=== PATIENT | female | born 1985 | race Caucasian/White ===

== ENCOUNTER 2016-11-27 14:21 | Inpatient (IN) | payer BC ==
--- NOTE | 2016-11-27 15:31 | ED ---
General Adult HPI - General Chief complaint: Psychiatric Symptoms Stated complaint: Mental Health Time Seen by Provider: 11/27/16 14:59 Source: patient, RN notes reviewed Mode of arrival: ambulatory Limitations: no limitations - History of Present Illness Initial comments: Patient a 31-year-old female who presents emergency room today with chief complaint of increased depression. Patient states that she has been feeling more down the past week. Patient's that bedside providing history stating that he believes it's been triggered after children at home developed lice. States he went to the treatment and one of the children got back. Patient states that she has been feeling more down the past week. States that she has had thoughts of hurting herself. Patient states that she has no intentions hernia rales. Does not that she saw a counselor once in the past. States she not currently seeing anyone. Currently not on any medications. Patient denies any other complaints associated symptoms. Patient denies any recent fever, chills, shortness of breath, chest pain, back pain, abdominal pain , nausea or vomiting, numbness or tingling, dysuria or hematuria, constipation or diarrhea, headaches or visual changes, or any other complaints. - Related Data Home Medications Medication Instructions Recorded Confirmed Cholecalciferol [Vitamin D3] 1,000 unit PO DAILY 07/26/15 11/27/16 Biotin 5 mg PO DAILY 11/27/16 11/27/16 Citalopram Hydrobromide [CeleXA] 20 mg PO DAILY 11/27/16 11/27/16 LORazepam [Ativan] 1 mg PO Q12H 11/27/16 11/27/16 Multivitamins, Thera [Multivitamin] 1 tab PO DAILY 11/27/16 11/27/16 Allergies Allergy/AdvReac Type Severity Reaction Status Date / Time Penicillins Allergy Rash/Hives Verified 11/27/16 15:17 Sulfa (Sulfonamide Allergy Rash/Hives Verified 11/27/16 15:17 Antibiotics) Review of Systems ROS Statement: Those systems with pertinent positive or pertinent negative responses have been documented in the HPI. ROS Other: All systems not noted in ROS Statement are negative. Past Medical History Additional Past Medical History / Comment(s): depression anxieyt History of Any Multi-Drug Resistant Organisms: None Reported Additional Past Surgical History / Comment(s): uterine ablation Past Psychological History: Anxiety, Depression, PTSD Smoking Status: Never smoker Past Alcohol Use History: None Reported Past Drug Use History: None Reported General Exam - General Exam Comments Initial Comments: General: The patient is awake and alert, in no distress, and does not appear acutely ill. Eye: Pupils are equal, round and reactive to light, extra-ocular movements are intact. No nystagmus. There is normal conjunctiva bilaterally. No signs of icterus. Ears, nose, mouth and throat: There are moist mucous membranes and no oral lesions. Neck: The neck is supple, there is no tenderness or JVD. Cardiovascular: There is a regular rate and rhythm. No murmur, rub or gallop is appreciated. Respiratory: Lungs are clear to auscultation, respirations are non-labored, breath sounds are equal. No wheezes, stridor, rales, or rhonchi. Gastrointestinal: Soft, non-distended, non-tender abdomen without masses or organomegaly noted. There is no rebound or guarding present. No CVA tenderness. Bowel sounds are unremarkable. Musculoskeletal: Normal ROM, no tenderness. Strength 5/5. Sensation intact. Pulses equal bilaterally 2+. Neurological: A&O x 3. CN II-XII intact, There are no obvious motor or sensory deficits. Coordination appears grossly intact. Speech is normal. Skin: Skin is warm and dry and no rashes or lesions are noted. Psychiatric: Cooperative, appropriate mood & affect, normal judgment. Limitations: no limitations Course Vital Signs 11/27/16 11/27/16 11/27/16 14:32 15:32 17:19 Temperature 98.5 F 98.0 F 98.2 F Pulse Rate 118 H 95 83 Respiratory 16 24 20 Rate Blood Pressure 137/89 118/76 121/72 O2 Sat by Pulse 97 96 94 L Oximetry Medical Decision Making - Medical Decision Making Patient has been examined here the emergency room by [facility]. They recommend admission to the hospital. Patient will be admitted and willing to sign herself in. - Lab Data Lab Results 11/27/16 Range/Units 15:41 Urine Opiates Screen Not Detected (NotDetected) Ur Oxycodone Screen Not Detected (NotDetected) Urine Methadone Screen Not Detected (NotDetected) Ur Propoxyphene Screen Not Detected (NotDetected) Ur Barbiturates Screen Not Detected (NotDetected) U Tricyclic Antidepress Not Detected (NotDetected) Ur Phencyclidine Scrn Not Detected (NotDetected) Ur Amphetamines Screen Not Detected (NotDetected) U Methamphetamines Scrn Not Detected (NotDetected) U Benzodiazepines Scrn Detected H (NotDetected) Urine Cocaine Screen Not Detected (NotDetected) U Marijuana (THC) Screen Not Detected (NotDetected) Disposition Clinical Impression: Depression Disposition: TRANSFER TO PSYCH HOSP/UNIT Time of Disposition: 18:19
[2016-11-27] MEDS ORDERED: LORazepam 1 MG TAB PO STA (18:17)
[2016-11-27] MEDS ORDERED: ACETAMINOPHEN TAB 325 MG TAB PO PRN (19:28)
[2016-11-27] MEDS ORDERED: MAGNESIUM HYDROXIDE 2,400 MG/10 ML CUP PO PRN (19:28)
[2016-11-27] MEDS ORDERED: MAG HYDROX/AL HYDROX/SIMETH 30 ML CUP PO PRN (19:28)
[2016-11-27] MEDS ORDERED: LORazepam 2 MG/ML SYRINGE IM PRN (19:30)
[2016-11-27 21:38] VITALS: BMI 36.5
[2016-11-28] MEDS: LORazepam 1 MG TAB PO PRN (05:46)
[2016-11-28 09:58] LABS: Basophils % (A) 1 %; CH 29.7; CHCM 33.6; Eosinophils % (A) 0 %; HCT 45.7 % (34.0-46.0); HDW 2.35; Luc # (Auto) 0.12; Luc % (Auto) 2; Lymphocytes # (A) 1.5 k/uL (1.0-4.8); Lymphocytes % (A) 22 %; MCH 29.1 pg (25.0-35.0); MCHC 32.8 g/dL (31.0-37.0); MCV 88.7 fL (80.0-100.0); Mean Platelet Volume 6.1; Monocytes # (A) 0.3 k/uL (0-1.0); Monocytes % (A) 4 %; Neutrophils % (A) 72 %; RBC 5.16 m/uL (3.80-5.40); RDW 13.1 % (11.5-15.5); WBC (Perox) 7.39
--- NOTE | 2016-11-28 10:09 | P.HP ---
Psychiatric H&P - . History & Physical: Allergies Allergy/AdvReac Type Severity Reaction Status Date / Time Penicillins Allergy Rash/Hives Verified 11/27/16 21:19 Sulfa (Sulfonamide Allergy Rash/Hives Verified 11/27/16 21:19 Antibiotics) Vital Signs Temp 97.9 F 11/28/16 05:57 Pulse 88 11/28/16 05:57 Resp 16 11/28/16 05:57 BP 116/75 11/28/16 05:57 Pulse Ox 94 L 11/27/16 17:19 Intake & Output 11/27/16 11/28/16 11/28/16 18:59 06:59 18:59 Weight 102.7 kg Laboratory Last Values Urine Opiates Screen Not Detected (NotDetected) 11/27/16 15:41 Ur Oxycodone Screen Not Detected (NotDetected) 11/27/16 15:41 Urine Methadone Screen Not Detected (NotDetected) 11/27/16 15:41 Ur Propoxyphene Screen Not Detected (NotDetected) 11/27/16 15:41 Ur Barbiturates Screen Not Detected (NotDetected) 11/27/16 15:41 U Tricyclic Antidepress Not Detected (NotDetected) 11/27/16 15:41 Ur Phencyclidine Scrn Not Detected (NotDetected) 11/27/16 15:41 Ur Amphetamines Screen Not Detected (NotDetected) 11/27/16 15:41 U Methamphetamines Scrn Not Detected (NotDetected) 11/27/16 15:41 U Benzodiazepines Scrn Detected (NotDetected) H 11/27/16 15:41 Urine Cocaine Screen Not Detected (NotDetected) 11/27/16 15:41 U Marijuana (THC) Screen Not Detected (NotDetected) 11/27/16 15:41 11/28/16 09:57 IDENTIFYING DATA: This patient is a 31-year-old female who was admitted to the mental health unit through the emergency room with acutely exacerbated anxiety feelings of hopelessness and presumed suicidal thoughts. HPI: The patient is known to me from the outpatient clinic. She carries a diagnosis of major depressive disorder and anxiety symptoms. She reports her mood is markedly depressed she is tearful on a regular basis and she feels that she can't function. Sleep is impaired energy is subsequently impaired. Appetite is decreased. She has hopeless thoughts and states "my family would be better without me". She's been experiencing "nonstop panic attacks" over the last several weeks. She has been known to struggle with those and she feels that they are triggered more acutely by her daughters coming home with head lice. The patient states that she treated them and all other clothing and one week later it reoccurred. She describes constant panic attacks that consist of shortness of breath, increased heart rate, diaphoresis, nausea and sometimes vomiting. These are happening spontaneously as well as triggered and she is concerned as to when the next panic attack will occur. She is reporting no homicidal ideation she specifically states she has no thoughts of harming her children. There is no report of auditory or visual hallucinations she is endorsing no specific delusions. She has no history of hypomanic or manic episodes. They have no firearms in her home. PAST PSYCHIATRIC HISTORY: This is the patient's first inpatient psychiatric admission, no history of suicide attempts or any self-injurious behavior. She did work with me briefly in the outpatient clinic and with our last meeting several months ago she stated she did not want to be on any psychotropic medications. She reports that she was successful without medications up until about 2 months ago. She has been on Zoloft in the past which caused weight gain , Wellbutrin which adversely affected her mood, Celexa which made her feel "numb ", Lexapro she felt she could not function, Trintellix she felt was ineffective. Her primary care physician recently put her back on Celexa then changed to Effexor XR which she has not yet taken. She has not been on Cymbalta or Prozac. She has been utilizing Ativan here on the mental health unit and that does provide some relief. She has previously tried Xanax. She is not currently working with an individual therapist but has in the past. PMH: She reported a previous history of Mnire's, and previously diagnosed with unspecified pelvic pain ALLERGIES: Penicillin, sulfa MEDICATIONS: As above CHEMICAL DEPENDENCY HISTORY: She reports rare use of alcohol at most 1-2 drinks per year, no use of marijuana, she has never been placed in residential treatment for chemical dependency reasons. FAMILY PSYCHIATRIC HISTORY: Her aunt is known to have depression as well as a cousin they both struggle with anxiety, no suicides in the family FAMILY CHEMICAL DEPENDENCY HISTORY: None Reported SOCIAL HISTORY: The patient is a 31-year-old female she's been for approximately 9 years. She states her marriage is "I thought getting better". She has 3 children ages 47 and 9 one boy and 2 girls. She is not employed outside of the home. She has a high school education and additionally earned a cosmetology certificate. No history of service she has 1 sister. Overall she finds her family supportive. Legal history none. Abuse history she states growing up she was bullied by cousins. MENTAL STATUS EXAM: The patient is an overweight female appearing her stated age. She presents with a disheveled appearance hygiene is adequate. She is dressed in her own clothing. Eye contact is intermittent speech is fluent and spontaneous nonpressured. She endorses a significantly depressed and anxious mood she is tearful throughout the session. She reports recent hopelessness thinking and thoughts of not being around. She endorses no homicidal ideation and specifically denies having any thoughts of harming her children. She endorses no auditory or visual hallucinations she is endorsing no specific delusions. She seems to be experiencing more obsessive thinking related to her children henry had lice. She demonstrates no verbal or physical aggressiveness. She is alert and oriented to person place and date. She is able to spell world backwards she is able to recall 3 words after delay of 3 minutes. Insight and judgment limited at this time. STRENGTHS/WEAKNESSES: Strengths: Housing, support from family, presenting for help weaknesses: Ongoing anxiety and mood symptoms causing psychosocial dysfunction INTELLECTUAL FUNCTIONING: Average IMPRESSIONS: [] 1. Major depressive disorder recurrent severe without psychosis, generalized anxiety disorder, panic disorder without agoraphobia 2. History of Mnire's, unspecified pelvic pain 3. Psychosocial dysfunction due to mood and anxiety symptoms PLAN: The patient has been admitted to the mental health unit voluntarily. We reviewed her presenting symptoms and medication options. We discussed the need to institute an antidepressant medication and we will temporarily use a benzodiazepine as a bridge. The patient chronically has significant concern about medication side effects and she is often focused on somatic issues. We decided to initiate Effexor XR 75 mg daily and we will continue the Ativan 1 mg up to 3 times daily as needed. We will monitor her for safety and encourage her participation in the milieu. Social work will meet with the patient for routine psychosocial assessment and begin discharge planning. She will undergo a routine physical exam by her primary care physician. Suggestions for cognitive reframing were offered and those will be reinforced during the hospitalization. We will involve her family in treatment and discharge planning as she will allow.
[2016-11-28 10:30] LABS: ALT 34 U/L (9-52); AST 20 U/L (14-36); Alkaline Phosphatase 89 U/L (38-126); Anion Gap 14 mmol/L; Blood Urea Nitrogen 11 mg/dL (7-17); Calcium 9.9 mg/dL (8.4-10.2); Carbon Dioxide 25 mmol/L (22-30); Chloride 104 mmol/L (98-107); Glucose 116 mg/dL (74-99); Non-African American GFR(MDRD) >60 (>60 ml/min/1.73 sqM); Potassium 3.9 mmol/L (3.5-5.1); Sodium 143 mmol/L (137-145); Total Bilirubin 0.6 mg/dL (0.2-1.3); Total Protein 7.8 g/dL (6.3-8.2)
[2016-11-28] MEDS: VENLAFAXINE HCL ER 75 MG CAP PO SCH (10:35)
--- NOTE | 2016-11-28 21:01 | CONS ---
DATE OF CONSULTATION: REASON FOR CONSULTATION: Medical management. HISTORY OF PRESENT ILLNESS: Ms. Vee is a 31-year-old female with a known history of depression, anxiety and history of Meniere's disease and thyroid nodule, came to the hospital with increasing depression. Apparently, the patient had panic attack last and she has been feeling more depressed over the past one week and she also had thoughts of hurting herself and denied any specific plan. Patient did not have any previous psychiatric inpatient admissions. Patient lives with her at home with 3 kids. The patient was on Celexa and Ativan. Currently not taking medications. Otherwise, patient does have a history of thyroid nodule and follow up with endocrinology clinic. Patient says that she was diagnosed with Meniere's disease and was on diuretics, which has been discontinued by her counter pocket sewer. Otherwise the patient denied any complaints of chest pain or short of breath. No fever. No chills. No nausea or vomiting, abdominal pain. The patient seems depressed. Denied any suicidal ideation at this time. Denied any headache, dizziness or lightheadedness and no visual or auditory hallucinations. Denied any other complaints. Complete review of systems negative except as above. PAST MEDICAL HISTORY: Anxiety, depression, Meniere's disease, thyroid nodule, PMS/PMDD. PAST SURGICAL HISTORY: D&C and ear tubes as a child, uterine ablation. Psychosocially: Anxiety, depression, PTSD. SOCIAL HISTORY: Patient never a smoker. Denied any alcohol. Denied any drugs or IVDU. FAMILY HISTORY: Denied any history of hypertension, diabetes mellitus or premature heart disease in the family. Home medication: 1. Multivitamins. 2. Vitamin D3. 3. Biotin. 4. Celexa. 5. Ativan. ALLERGIES: PENICILLIN AND SULFA. PHYSICAL EXAMINATION: A 31-year-old female, lying in the bed. Awake, alert, oriented, x3 appears to be in no apparent distress. VITALS: Blood pressure is 132/75, pulse 81, respiratory rate 16, temperature afebrile, pulse ox is ( ) on room air. HEENT: Atraumatic, normocephalic. Neck is supple. No JVD. CVS: S1, S2 heard. No murmur, no gallop and no rub. LUNGS: Bilateral air entry is present. No wheezing. No crackles. Nonlabored breathing. ABDOMEN: Soft, nontender. Bowel sounds present. CENTRAL NERVOUS SYSTEM: Awake, alert and oriented x3. No focal deficits. EXTREMITIES: No edema. Pulses palpable bilaterally. No clubbing or cyanosis. PSYCHIATRIC: Cooperative. Seems depressed. Denied any hallucination or suicidal ideation. LABORATORY DATA: WBC 7.0, hemoglobin 14.0, platelets 254. Sodium 143, potassium 3.9, chloride 104, bicarb is 25. BUN 11, creatinine 0.86. Blood sugar is 116. TSH 1.970. UDS is positive for benzodiazepines. IMPRESSION: 1. Major depression without psychotic features. 2. Generalized anxiety and depression. 3. Panic disorder. 4. History of Meniere's. 5. History of thyroid nodule, TSH is within normal limits. Follow-up with counter pocket sewer. 6. PTSD and mood disorder. 7. Morbid obesity with body mass index of 36.5. 8. PMS/PMDD. DISCUSSION AND PLAN: Patient will be continued on current antidepressants including Ativan and Effexor as per psychiatric recommendations. TSH level is within normal limits. Advised to follow-up with counter pocket sewer once the patient is discharged. The patient advised to follow-up with public speaker for her PMS/PMDD. Otherwise, we will continue to follow closely. Further recommendations based on the clinical course.
[2016-11-29] MEDS: VENLAFAXINE HCL ER 75 MG CAP PO SCH (08:45)
[2016-11-29] MEDS: LORazepam 1 MG TAB PO PRN (08:46)
--- NOTE | 2016-11-29 15:14 | P.PN ---
Progress Note - Text Interval history: Patient seen in cross coverage today for Dr. Sage. She has been started on Effexor XR. She describes feeling a little bit of "off" this morning, felt tired and seems to describe having had some blurred vision. She seems to relay that she felt better after she received some Ativan. She relates she only got about 4-6 hours of sleep last night. Mental status exam: She is alert and cooperative with the interview. Speech is fluent, not rapid or pressured. Thought processes organized. Her mood she relays wasn't doing that good this morning but currently appears to be better. Her affect does show some range. She denies any current thoughts of suicide. She does not voice any thoughts of harm to others. No evidence of psychosis or agitation. Plan: We'll maintain Effexor XR as current. We will monitor for any side effects. We'll continue to cover this patient for Dr. Sage over the weekend. Continue to monitor regarding any thoughts of suicide.
[2016-11-30] MEDS: LORazepam 1 MG TAB PO PRN (08:26)
[2016-11-30] MEDS: VENLAFAXINE HCL ER 75 MG CAP PO SCH (08:26)
--- NOTE | 2016-11-30 18:14 | P.PN ---
Progress Note - Text Interval history: Patient is seen in cross coverage today for Dr. Sage. She reports that she does feel better with her mood compared to admission. She feels like she is tolerating the Effexor XR okay. She does describe today after taking it she felt like her eyes were dilated and she had some blurred vision, we discussed continuing to monitor this. She does feel like her appetite is becoming better. Mental status exam: She is alert and cooperative with the interview. Her speech is fluent, not rapid or pressured. Her thought processes are organized. Her affect does show range. She describes her mood is doing better. She denies any current thoughts of harm to self or others. No evidence of psychosis or agitation. Plan: We'll maintain current psychotropic medications. We will monitor for side effects. Continue to monitor her response to treatment. Dr. Sage will resume care this patient starting tomorrow.
[2016-11-30] MEDS: diphenhydrAMINE 25 MG CAP PO PRN (20:56)
[2016-12-01 06:49] VITALS: TEMP 97.8
[2016-12-01] MEDS: diphenhydrAMINE 25 MG CAP PO PRN (08:18)
[2016-12-01] MEDS: VENLAFAXINE HCL ER 75 MG CAP PO SCH (08:18)
[2016-12-01] MEDS: LORazepam 1 MG TAB PO PRN (08:19)
[2016-12-01 08:20] VITALS: BP 122/72; PULSE 92; RESP 18
--- NOTE | 2016-12-01 08:46 | P.DS ---
Providers Date of admission: 11/27/16 19:20 Expected date of discharge: 12/01/16 Attending physician: Alexander Sage Consults: 11/27/16 19:28 Consult Physician Routine Consulting Provider: Clay Arauz Consult Reason/Comments: Medical Management Do you want consulting provider notified?: Yes Primary care physician: Clay Davonte - Discharge Diagnosis(es) (1) Major depressive disorder, recurrent severe without psychotic features Current Visit: Yes Status: Acute Priority: High (2) Generalized anxiety disorder Current Visit: Yes Status: Acute Priority: High Hospital Course: Brief summary of admission note: The patient is a 31-year-old female who was admitted to the mental health unit through the emergency room with acutely exacerbated feelings of anxiety and feelings of hopelessness. The patient reported that her mood was depressed she was tearful on a regular basis sleep was impaired energy was subsequently impaired. Appetite was reportedly decreased and she was having some hopeless thoughts. She reported having frequent panic attacks. The panic attacks were causing dysfunction at home and she subsequently presented for help. For full details please refer to the psychiatric evaluation dated 11/28/2016. Summary of hospital course: The patient was admitted to the mental health unit voluntarily. We reviewed her presenting symptoms and medication options. She was started on Effexor XR 75 mg daily. We utilized Ativan 1 mg as needed for acute anxiety. The patient underwent a routine medical exam with the box packer. She was seen by Dr. Woodall in coverage over the weekend. The patient is known to me from my outpatient psychiatric practice. She reports that she is no longer having any hopelessness thinking she has met with family over the weekend she has found them supportive and they have developed ways to help her throughout the day and particularly with childcare. She does plan to return to individual psychotherapy sessions. She has demonstrated no agitated behavior and has been compliant with the milieu. She has a support meeting scheduled for this afternoon. She is reporting no suicidal ideation. Mental status exam: The patient is an overweight female appearing her stated age. She has good hygiene grooming. Eye contact is appropriate speech is fluent spontaneous nonpressured. Affect is more euthymic. She is able to demonstrate a range of affect. She endorses no hopelessness thinking no suicidal or homicidal ideation intent or plan. She does not present hypomanic or manic there is no evidence of psychosis she is endorsing no auditory or visual hallucinations she is endorsing no specific delusions. Insight and judgment are grossly intact. Cognitively she is alert and oriented to person place and date. There is no verbal or physical aggressiveness observed. Impressions 1. Major depressive disorder recurrent severe without psychosis, generalized anxiety disorder, panic disorder without agoraphobia 2. History of Mnire's, unspecified pelvic pain 3. Psychosocial dysfunction due to exacerbated symptoms of anxiety Plan: The patient will continue on the Effexor XR 75 mg daily Ativan 1 mg up to twice daily as needed. The Ativan has been prescribed by her primary care physician prior to this admission. We plan to discharge her home today with family following her support meeting. There is no imminent safety risk she is appropriate for transition back to outpatient care. We discussed a transition to [facility] but she feels that that is unnecessary. She is not using any alcohol or illicit drugs. She is instructed to return to emergency room if any acute safety concerns and she is agreeable. She plans on starting individual psychotherapy sessions with a counselor at [facility]. She will continue to follow with nd outpatient for medication management. Plan - Discharge Summary New Discharge Prescriptions: Venlafaxine HCl ER [Effexor XR] 75 mg PO DAILY #30 cap.er.24h Discharge Medication List Cholecalciferol [Vitamin D3] 1,000 unit PO DAILY 07/26/15 [History] Biotin 5 mg PO DAILY 11/27/16 [History] LORazepam [Ativan] 1 mg PO Q12H 11/27/16 [History] Multivitamins, Thera [Multivitamin] 1 tab PO DAILY 11/27/16 [History] Venlafaxine HCl ER [Effexor XR] 75 mg PO DAILY #30 cap.er.24h 12/01/16 [Rx] Follow up Appointment(s)/Referral(s): Clay Arauz DO [Primary Care Provider] - 1-2 days
== END 2016-12-01 13:30 | disposition home or self-care (01) | DRG 885 ==
LOC: EC 14:21 → 3MHU 19:20
PROVIDERS: ADMIT Psychiatry & Neurology Psychiatry; ATTEND Psychiatry & Neurology Psychiatry
DX: F33.2 Major depressive disorder, recurrent severe without psychotic features (principal); R45.851 Suicidal ideations; F32.81 Premenstrual dysphoric disorder; F41.0 Panic disorder [episodic paroxysmal anxiety]; F41.1 Generalized anxiety disorder; H81.09 Meniere's disease, unspecified ear; R10.2 Pelvic and perineal pain; Z81.8 Family history of other mental and behavioral disorders; E04.1 Nontoxic single thyroid nodule; F43.10 Post-traumatic stress disorder, unspecified; Z79.899 Other long term (current) drug therapy
CPT/HCPCS: 80053; 80306; 82075; 84443; 85025; 99285

== ENCOUNTER → 2016-12-05 | Outpatient (CLI) | payer BC ==
--- NOTE | 2016-12-05 11:14 | US ---
EXAMINATION TYPE: US thyroid st tissue head/neck DATE OF EXAM: 12/05/2016 11:04 AM COMPARISON: 05/28/2016 CLINICAL HISTORY: Thyroid Nodule E04.1. 6 month F/U on left thyroid nodules GLAND SIZE: Right Lobe: 4.8 x 1.4 x 1.7 cm Overall Parenchyma: homogenous Left Lobe: 4.3 x 1.2 x 1.4 cm Overall Parenchyma: homogeneous Isthmus Thickness: 0.3 cm NODULES RIGHT: # of nodules measured on right: 0 LEFT: # of nodules measured on left: 1 1. 0.8 X 0.5 x 0.5 cm hypoechoic solid nodule at the mid pole with well-defined margins; This nodul e is wider than tall and shows intranodular vascularity. Prior size: 0.7 x 0.5 x 0.6 cm ISTHMUS: # of nodules measured in the isthmus: 0 Bilateral neck scanned, no abnormal lymphadenopathy noted/ IMPRESSION: Stable nodule left lobe
== END | disposition home or self-care (01) ==
LOC: RADUSWWP 10:54
PROVIDERS: ATTEND Surgery
DX: E04.1 Nontoxic single thyroid nodule (principal)
CPT/HCPCS: 76536

== ENCOUNTER → 2017-12-09 | Outpatient (CLI) | payer BC ==
--- NOTE | 2017-12-09 09:05 | US ---
EXAMINATION TYPE: US thyroid st tissue head/neck DATE OF EXAM: 12/09/2017 COMPARISON: US 2017 CLINICAL HISTORY: E04.1 Thyroid Nodule. GLAND SIZE: Right Lobe: 5.0 x 1.6 x 0.7 cm Overall Parenchyma: homogenous Left Lobe: 4.7 x 1.7 x 1.0 cm Overall Parenchyma: homogeneous Isthmus Thickness: 0.3 cm NODULES RIGHT: # of nodules measured on right: 0 LEFT: # of nodules measured on left: 1 1. 0.8 X 0.6 x 0.4 cm hypoechoic solid nodule at the upper mid pole with well-defined margins. Thi s nodule is wider than tall and shows intranodular vascularity. Prior size: 0.8 x 0.5 x 0.5 cm ISTHMUS: # of nodules measured in the isthmus: 0 Bilateral neck scanned, no evidence of lymphadenopathy. IMPRESSION: Stable nonspecific solid nodule upper pole left thyroid lobe. No new nodules are identified.
== END | disposition home or self-care (01) ==
LOC: RADUSWWP 08:13
PROVIDERS: ATTEND Surgery
DX: E04.1 Nontoxic single thyroid nodule (principal)
CPT/HCPCS: 76536

== ENCOUNTER → 2018-12-17 | Outpatient (CLI) | payer BC ==
--- NOTE | 2018-12-17 09:20 | US ---
EXAMINATION TYPE: US thyroid st tissue head/neck DATE OF EXAM: 12/17/2018 COMPARISON: NONE CLINICAL HISTORY: E04.1 Thyroid nodule. GLAND SIZE: Right Lobe: cm Overall Parenchyma: Left Lobe: cm Overall Parenchyma: Isthmus Thickness: cm NODULES RIGHT: # of nodules measured on right: 1. X x cm nodule at the pole with margins; . This nodule is and shows . Prior size: x x cm 2. X x cm nodule at the pole with margins; . This nodule is and shows . Prior size: x x cm 3. X x cm nodule at the pole with margins; . This nodule is and shows . Prior size: x x cm 4. X x cm nodule at the pole with margins; . This nodule is and shows . Prior size: x x cm LEFT: # of nodules measured on left: 1. X x cm nodule at the pole with margins; . This nodule is and shows . Prior size: x x cm 2. X x cm nodule at the pole with margins; . This nodule is and shows . Prior size: x x cm 3. X x cm nodule at the pole with margins; . This nodule is and shows . Prior size: x x cm 4. X x cm nodule at the pole with margins; . This nodule is and shows . Prior size: x x cm ISTHMUS: # of nodules measured in the isthmus: 1. X x cm nodule at the pole with margins; . This nodule is and shows . Prior size: x x cm Bilateral neck scanned, no evidence of lymphadenopathy. IMPRESSION: EXAMINATION TYPE: US thyroid st tissue head/neck DATE OF EXAM: 12/17/2018 COMPARISON: NONE CLINICAL HISTORY: E04.1 Thyroid nodule. GLAND SIZE: Right Lobe: 5.1 x 1.1 x 1.5 cm Overall Parenchyma: homogenous Left Lobe: 4.9 x 1.3x 1.7 cm Overall Parenchyma: homogeneous Isthmus Thickness: cm NODULES RIGHT: # of nodules measured on right: 0 LEFT: # of nodules measured on left: 1 1. 0.8 X 0.5 x 0.6 cm hypoechoic cystic with internal echoes nodule at the mid pole with well-defin ed margins. This nodule is wider than tall and shows peripheral vascularity. Prior size: 0.8 x 0.6 x 0.4 cm ISTHMUS: # of nodules measured in the isthmus: 0 Bilateral neck scanned, no evidence of lymphadenopathy. IMPRESSION: Thyromegaly with a stable appearing 8 mm nodule within the left lobe of thyroid.
== END | disposition home or self-care (01) ==
LOC: RADUSWWP 08:42
PROVIDERS: ATTEND Surgery
DX: E01.0 Iodine-deficiency related diffuse (endemic) goiter (principal)
CPT/HCPCS: 76536

== ENCOUNTER → 2020-03-06 | Outpatient (CLI) | payer BC ==
--- NOTE | 2020-03-06 11:12 | US ---
EXAMINATION TYPE: US thyroid st tissue head/neck DATE OF EXAM: 03/06/2020 COMPARISON: Prior ultrasound 12/17/2018 CLINICAL HISTORY: E04.1 Thyroid nodule. Thyroid nodule. GLAND SIZE: Right Lobe: 4.9 x 1.3 x 1.2 cm Overall Parenchyma: homogenous Left Lobe: 5.1 x 1.2 x 1.5 cm Overall Parenchyma: homogeneous Isthmus Thickness: .4 cm NODULES RIGHT: # of nodules measured on right: 0 LEFT: # of nodules measured on left: 1 1. 1.0 X .6 x .7 cm hypoechoic solid nodule at the mid pole with well-defined margins; . This nodu le is wider than tall and shows intranodular vascularity. Prior size: .8 x .5 x .5 cm ISTHMUS: # of nodules measured in the isthmus: 0 Bilateral neck scanned, no evidence of lymphadenopathy. IMPRESSION: Slight interval growth of patient's left-sided thyroid nodule
== END | disposition home or self-care (01) ==
LOC: RADUSWWP 09:20
PROVIDERS: ATTEND Surgery
DX: E04.1 Nontoxic single thyroid nodule (principal)
CPT/HCPCS: 76536

== ENCOUNTER → 2021-01-10 | Outpatient (CLI) | payer BC | END | disposition home or self-care (01) | LOC: LABWHC1 11:20 | PROVIDERS: ATTEND Family Medicine | DX: Z53.9 Procedure and treatment not carried out, unspecified reason (principal) ==

== ENCOUNTER → 2021-03-07 | Outpatient (CLI) | payer BC ==
--- NOTE | 2021-03-07 11:37 | US ---
EXAMINATION TYPE: US thyroid st tissue head/neck DATE OF EXAM: 03/07/2021 COMPARISON: US 2019 CLINICAL HISTORY: E04.1 Thyroid nodule. GLAND SIZE: Right Lobe: 4.3 x 1.5 x 1.5 cm Overall Parenchyma: homogenous Left Lobe: 4.8 x 1.4 x 1.4 cm Overall Parenchyma: homogeneous Isthmus Thickness: 0.3 cm NODULES RIGHT: # of nodules measured on right: 0 LEFT: # of nodules measured on left: 1 1. 1.1 X 0.7 x 0.6 cm, mid lateral, solid or almost completely solid, hypoechoic nodule, which is t aller than wide, with smooth margins, with echogenic foci. Prior size: 1.0 x 0.6 x 0.7 cm ISTHMUS: # of nodules measured in the isthmus: 0 Bilateral neck scanned, no evidence of lymphadenopathy. IMPRESSION: Highly suspicious, recommend fine-needle aspiration 2017 ACR TI-RADS LEVEL: TR 5*Highest TI-RADS level nodule reported
== END | disposition home or self-care (01) ==
LOC: RADUSWWP 07:59
PROVIDERS: ATTEND Surgery
DX: E04.1 Nontoxic single thyroid nodule (principal)
CPT/HCPCS: 76536

== ENCOUNTER → 2021-03-08 | Outpatient (CLI) | payer BC ==
[2021-03-08 13:38] LABS: Potassium 3.9 mmol/L (3.5-5.1)
[2021-03-08 13:46] LABS: Basophils # (A) 0.1 k/uL (0-0.2); Basophils % (A) 1 %; Eosinophils # (A) 0.2 k/uL (0-0.7); Eosinophils % (A) 2 %; HCT 39.9 % (34.0-46.0); HGB 13.5 gm/dL (11.4-16.0); Lymphocytes % (A) 27 %; MCHC 33.8 g/dL (31.0-37.0); MCV 88.9 fL (80.0-100.0); Mean Platelet Volume 6.4; Monocytes # (A) 0.3 k/uL (0-1.0); Monocytes % (A) 4 %; Neutrophils # (A) 4.9 k/uL (1.3-7.7); Neutrophils % (A) 65 %; Platelet Count 252 k/uL (150-450); RBC 4.49 m/uL (3.80-5.40); WBC 7.5 k/uL (3.8-10.6)
== END | disposition home or self-care (01) ==
LOC: LABWHC1 13:01
PROVIDERS: ATTEND Orthopaedic Surgery
DX: Z01.812 Encounter for preprocedural laboratory examination (principal); M23.91 Unspecified internal derangement of right knee
CPT/HCPCS: 36415; 80051; 85025

== ENCOUNTER 2021-03-27 12:53 | Day surgery (SDC) | payer BC ==
[2021-03-27 13:19] VITALS: RESP 16; TEMP 98.3
[2021-03-27 14:14] VITALS: BP 120/76; PULSE 78
--- NOTE | 2021-03-27 14:24 | US ---
EXAMINATION TYPE: US FNA thyroid first lesion DATE OF EXAM: 03/27/2021 COMPARISON: NONE HISTORY: Thyroid nodule. Maximal barrier technique was utilized. After informed consent, skin overlying the lesion was locali zed with ultrasound and the overlying skin prepped and draped. Ultrasound was utilized using sterile technique. Lidocaine was used for local anesthesia. Five passes with a 25-gauge needle were made int o the lobe thyroid nodule and aspirated specimen was submitted to cytology. Following the procedure hemostasis achieved. No immediate complication. The patient discharged in stable condition. IMPRESSION: STATUS POST ULTRASOUND GUIDED FINE NEEDLE ASPIRATION OF THYROID NODULE, PATHOLOGY IS PEND ING. THIS PROCEDURE WAS PERFORMED BY THE UNDERSIGNED.
== END 2021-03-27 14:15 | disposition home or self-care (01) ==
LOC: RADPROMAIN 12:53
PROVIDERS: ATTEND Surgery
DX: E04.1 Nontoxic single thyroid nodule (principal)
CPT/HCPCS: 10005; 88173; 88305

== ENCOUNTER 2021-03-28 10:40 | Day surgery (SDC) | payer BC ==
[2021-03-27 12:01] VITALS: BMI 43.0
--- NOTE | 2021-03-27 15:12 | HP ---
HISTORY AND PHYSICAL REASON FOR ADMISSION: Surgery scheduled for 03/28/2021 HISTORY OF PRESENT ILLNESS: Stephanie Vee is a 35-year-old patient seen with progressive right knee pain. We discussed options for treatment. She elected to proceed with right knee arthroscopy. Consent was obtained. PAST MEDICAL HISTORY: Anxiety/depression. PAST SURGICAL HISTORY: Carpal tunnel release. MEDICATIONS: Effexor, Ativan. ALLERGIES: SULFA and PENICILLIN. SOCIAL HISTORY: She denies tobacco use. PHYSICAL EVALUATION OF THE RIGHT KNEE: Range of motion is +3 to 130. Mild effusion. Tenderness medial joint line. Positive medial Mary's. Ligaments stable. Hip rotation without pain. Distal neurovascular exam is intact. RADIOGRAPHS: Radiographs of the right knee revealed no significant osseous abnormality. IMPRESSION: 1. Internal derangement right knee with osteochondral tear versus a meniscal tear. 2. Right knee mild osteoarthritis. PLAN: Right knee arthroscopy with chondroplasty and possible partial medial meniscectomy. MMODL / IJN: [id number] /
[~2021-03-28 10:40] MED LIST: DEXAMETHASONE SOD PHOSPHATE 4 MG/ML 1 ML VIAL IV ONE; HYDROmorphone 0.5 MG/0.5 ML SYRINGE IVP PRN; LACTATED RINGERS 1,000 ML IV SCH; LIDOCAINE 1% (10MG/ML) FOR IV START INTRADERMA PRN; MIDAZOLAM 2 MG/2 ML VIAL IV PRN; ONDANSETRON 4 MG/2 ML VIAL IVP ONE; ceFAZolin 3 GM in SODIUM CHLORIDE 0.9% 100 ML IVPB PRN
[2021-03-28] MEDS ORDERED: DEXAMETHASONE SOD PHOSPHATE 4 MG/ML 1 ML VIAL IVP ONE (11:43)
[2021-03-28] MEDS ORDERED: ONDANSETRON 4 MG/2 ML VIAL IVP ONE (11:44)
[2021-03-28] MEDS ORDERED: SCOPOLAMINE 1.5MG/72HR PATCH TRANSDERM ONE (11:52)
[2021-03-28] MEDS ORDERED: LIDOCAINE 1% INJ 10MG/ML (20 ML MDV) ONE (12:20)
[2021-03-28] MEDS ORDERED: HYDROmorphone (PF) 1 MG/ML ONE (12:20)
[2021-03-28] MEDS ORDERED: fentaNYL (PF) 50 MCG/ML 2 ML AMP ONE (12:20)
[2021-03-28] MEDS ORDERED: PROPOFOL 10 MG/ML 20 ML VIAL IV ONE (12:20)
[2021-03-28] MEDS ORDERED: SUCCINYLCHOLINE CHLORIDE 100 MG/5 ML SYR IV ONE (12:20)
[2021-03-28] MEDS ORDERED: MIDAZOLAM 2 MG/2 ML VIAL ONE (12:20)
[2021-03-28] MEDS ORDERED: BUPIVACAINE (PF) 0.25% 30 ML VIAL SQ ONE ×2 (12:42→12:54)
--- NOTE | 2021-03-28 13:11 | P.OP ---
Date of Procedure: 03/28/21 Preoperative Diagnosis: Internal derangement right knee Postoperative Diagnosis: 1. Tear medial meniscus right knee 2. Grade 2 chondromalacia medial femoral condyle right knee 3. Grade 1 chondromalacia patella right knee 4. Reactive synovitis medial, lateral and suprapatellar compartments right knee Procedure(s) Performed: 1. Arthroscopic partial medial meniscectomy right 2. Arthroscopic chondroplasty medial femoral condyle right knee 3. Arthroscopic chondroplasty patella right knee 4. Arthroscopic partial synovectomy medial, lateral and suprapatellar compartments right knee Anesthesia: LILYA, local Surgeon: Fracisco Gomez Estimated Blood Loss (ml): 7 Pathology: none sent Condition: stable Disposition: PACU Indications for Procedure: 35 -year-old patient seen with progressive right knee pain. We discussed treatment options. She elected to proceed with arthroscopy. Consent was obtained. Operative Findings: See description of procedure Description of Procedure: Patient was taken to the operative suite. Patient underwent a general anesthetic by the department of anesthesia. Patient was given preoperative antibiotics. The right lower extremity was placed in a well-padded arthroscopic leg mcneal. The right leg was prepped and draped in the normal sterile orthopedic fashion. A lateral parapatellar and suprapatellar incision was made. Trochars were inserted. Arthroscopy was initiated. Suprapatellar pouch revealed diffuse thick reactive synovitis. The patellofemoral joint appeared to articulate congruently. There rate 1 chondromalacia of the patella with some small osteochondral tears present. The scope was guided into the medial gutter. No loose bodies or plica were identified. The scope was then guided into the medial compartment. A medial parapatellar incision was made. Trocar inserted followed by probe. There was a radial tear posterior horn medial meniscus. There were grade 2 chondromalacia changes of the medial femoral condyle with some osteochondral tears present. There was thick reactive synovitis anteriorly. I performed a partial medial meniscectomy getting down to stable meniscal tissue. I performed a chondroplasty of the medial femoral condyle getting down to stable osteochondral tissue. I performed a partial synovectomy decompressing the thick reactive synovitis anteriorly. The shaver was removed. The residual meniscus appeared stable. The residual osteochondral surface was stable. There was good decompression of the synovitis. Scope and probe were then guided into the intercondylar notch. Cruciates were identified, probed and found to be stable. The scope and probe were then guided into lateral compartment. The lateral meniscus was probed and found to be stable. There was no significant chondromalacia. There was thick reactive synovitis anteriorly. I introduced a motorized shaver and I performed a partial synovectomy decompressing the thick reactive synovitis. The shaver was removed. There was good decompression of the synovitis. The scope was in guided back into the suprapatellar compartment. I introduced a motorized shaver into the super patellar compartment. I debrided some piecemeal fragments of meniscus I enc ountered. I performed a chondroplasty of the patella getting down to stable osteochondral tissue. I performed a partial synovectomy decompressing the thick reactive synovitis. The shaver was removed. There was good decompression of the synovitis. Instruments were now removed from the joint. The joint was infiltrated with .25% Marcaine. Steri-Strips were applied to the portal sites. Sterile dressings were applied. The patient was placed into a SERGEY hose. No tourniquet was utilized. The patient was awakened, transferred to a bed and taken to recovery stable satisfactory condition.
[2021-03-28 13:31] VITALS: TEMP 97
[2021-03-28 14:46] VITALS: RESP 16
[2021-03-28 14:56] VITALS: BP 119/72; PULSE 70
== END 2021-03-28 15:12 | disposition home or self-care (01) ==
LOC: OR 10:40
PROVIDERS: ATTEND Orthopaedic Surgery
DX: M23.203 Derangement of unspecified medial meniscus due to old tear or injury, right knee (principal); M22.41 Chondromalacia patellae, right knee; M65.861 Other synovitis and tenosynovitis, right lower leg; F41.9 Anxiety disorder, unspecified; F32.9 Major depressive disorder, single episode, unspecified; Z98.890 Other specified postprocedural states; Z79.899 Other long term (current) drug therapy; Z88.0 Allergy status to penicillin; Z88.2 Allergy status to sulfonamides
CPT/HCPCS: 81025; 29881; J2250; J1100; J0690; J2405; J2001; J3010; J1170; J0330; J2704; J1790

== ENCOUNTER → 2022-01-27 | Outpatient (CLI) | payer BC ==
--- NOTE | 2022-01-28 13:36 | MM ---
Reason for exam: screening (asymptomatic). Baseline mammogram. Physical Findings: A clinical breast exam by your physician is recommended on an annual basis and results should be correlated with mammographic findings. MG 3D Screening Mammo W/Cad Bilateral CC and MLO view(s) were taken. The breast tissue is extremely dense which could obscure a lesion on mammography. There is no discrete abnormality. ASSESSMENT: Negative, BI-RAD 1 RECOMMENDATION: Routine screening mammogram of both breasts at age 40.
== END | disposition home or self-care (01) ==
LOC: RADMAMWWP 12:53
PROVIDERS: ATTEND Obstetrics & Gynecology
DX: Z12.31 Encounter for screening mammogram for malignant neoplasm of breast (principal)
CPT/HCPCS: 77063; 77067

== ENCOUNTER → 2022-02-07 | Outpatient (CLI) | payer BC ==
[2022-02-07 23:14] LABS: Basophils # (A) 0.08 X 10*3/uL (0.00-0.10); Eosinophils # (A) 0.13 X 10*3/uL (0.04-0.35); Eosinophils % (A) 1.6 %; HCT 41.7 % (37.2-46.3); HGB 13.2 g/dL (12.0-15.0); Immature Grans, Automated 0.5 %; MCH 28.8 pg (27.0-32.0); MCHC 31.7 g/dL (32.0-37.0); Mean Platelet Volume 9.4 fL (9.5-12.2); Monocytes # (A) 0.49 X 10*3/uL (0.20-1.00); Monocytes % (A) 6.2 %; NRBC Per 100 WBC 0 /100 WBCS (0.0-0.0); Neutrophils # (A) 4.88 X 10*3/uL (1.80-7.70); Neutrophils % (A) 61.7 %; Platelet Count 248 X 10*3/uL (140-440); RBC 4.58 X 10*6/uL (4.10-5.20); RDW 12.2 % (11.5-14.5); WBC 7.92 X 10*3/uL (4.50-10.00)
[2022-02-07 23:19] LABS: African American GFR (CKD) 109.9 (60.0-200.0); Anion Gap 8.8 mmol/L (10.00-18.00); Blood Urea Nitrogen 14.6 mg/dL (9.0-27.0); Carbon Dioxide 26.2 mmol/L (20.0-27.5); Non-African American GFR(CKD) 94.8 (60.0-200.0); Potassium 4.4 mmol/L (3.5-5.5)
== END | disposition home or self-care (01) ==
LOC: LABPAT 14:21
PROVIDERS: ATTEND Obstetrics & Gynecology
DX: Z01.812 Encounter for preprocedural laboratory examination (principal); N92.0 Excessive and frequent menstruation with regular cycle
CPT/HCPCS: 36415; 80051; 82565; 82947; 84520; 85025; 87086

== ENCOUNTER 2022-02-17 07:06 | Observation (INO) | payer BC ==
--- NOTE | 2022-02-13 15:00 | HP ---
HISTORY AND PHYSICAL DATE OF DICTATION: 02/13/2022 DATE OF SURGERY: 02/17/2022 HISTORY OF PRESENT ILLNESS: This patient is a 36-year-old 3, para 3-0-0-3, who presents to the office at her annual examination complaining of significant menorrhagia despite having previously undergone NovaSure endometrial ablation. She presents requesting definitive therapy, as less aggressive therapy has been unsuccessful. She declines regression to hormonal manipulation, as this has been ineffective in the past as well. Her does have a vasectomy in place. PAST MEDICAL HISTORY: Significant for some anxiety and depression as well as some PMS symptoms. SURGICAL HISTORY: She has undergone colonoscopy. She did have hysteroscopy with NovaSure endometrial ablation in 2014. She has additionally had right knee surgery as well as myringotomy as a child. There were apparently no anesthetic concerns. OBSTETRICAL HISTORY: 3, para 3-0-0-3 with three term vaginal deliveries without complications. Method of contraception is vasectomy as noted above. GYNECOLOGIC HISTORY: Unremarkable except as noted in history of present illness with ongoing menorrhagia despite having previously undergone ablation. There is no history of any infections to include STDs. FAMILY HISTORY: Noncontributory. SOCIAL HISTORY: The patient is and works in the [employer] in the kitchen. She is a nonsmoker and denies any other social concerns. MEDICATIONS: Current medications include Effexor XR 75 mg daily as well as Ativan 0.5 mg as b.i.d. as needed. ALLERGIES: She reports an ALLERGY TO CILLINS AND SULFA which cause both rash and hives. She does have some additional seasonal allergies. REVIEW OF SYSTEMS: Confined to history of present illness. PHYSICAL EXAMINATION: Vital signs are stable. The patient is afebrile. In general this is a well-developed, well-nourished white female in no acute distress. Her heart has a regular rhythm and rate without murmur. Her lungs are clear to auscultation bilaterally in all ervin. Her abdomen is nondistended, has normoactive bowel sounds, is soft, nontender, and without any palpable masses aside from the uterine fundus. Her extremities are without any cyanosis, clubbing or edema and are nontender to palpation bilaterally. Pelvic examination demonstrates normal external genitalia and BUS with normal vaginal mucosa and cervix. There is no cervical motion tenderness. The uterus is 5 to 6 weeks in size, mid plane, mobile, nontender, normal in shape. The adnexa are normal and nontender without mass bilaterally. ASSESSMENT AND PLAN: Menorrhagia; failed endometrial ablation. After discussion of alternatives, the patient has requested to proceed with definitive therapy. Examination bears out that she is best considered a candidate for Da Pardeep approach. As a result, we have planned for Da Pardeep robotically assisted laparoscopic hysterectomy with bilateral salpingectomy followed by diagnostic cystoscopy. The risks and complications of the procedure have been thoroughly discussed, including the risks for bleeding, bleeding requiring transfusion, infection, injury to local structures to specifically include injury to the bowel, bladder and ureters. We additionally then discussed the injuries unique to Da Pardeep surgery, to specifically include thermal injury and vaginal cuff dehiscence. She has understood all of this and has agreed to proceed. We are scheduled for the procedure as outlined above on the morning of February 17, 2022. MMODL / IJN: [id number] /
[2022-02-14 11:54] VITALS: BMI 43.2
[~2022-02-17 07:06] MED LIST changes: -HYDROmorphone 0.5 MG/0.5 ML SYRINGE IVP PRN; -LIDOCAINE 1% (10MG/ML) FOR IV START INTRADERMA PRN; -MIDAZOLAM 2 MG/2 ML VIAL IV PRN; +MORPHINE SULFATE 4 MG/ML SYRINGE IV PRN
[2022-02-17] MEDS ORDERED: MIDAZOLAM 2 MG/2 ML VIAL IVP ONE (08:49)
--- NOTE | 2022-02-17 09:02 | P.ANPRN ---
Procedure Note - Anesthesia - Nerve Block Performed Bilateral Erector Spinae Single Time Out Performed: Yes ([id number]) Date of Procedure: 02/17/22 Procedure Start Time: 08:49 Procedure Stop Time: 08:56 Location of Patient: PreOp Indication: Acute Post-Operative Pain, Requested by Surgeon Sedation Type: Sedate with meaningful contact maintained Preparation: Sterile Prep Position: Prone Catheter: None Needle Types: Pajunk Needle Gauge: 20 Ultrasound used to visualize needle placement: Yes Ultrasound used to observe medication spread: Yes Injectate: 0.5% Ropivacaine (see comment for volume) Blood Aspirated: No Pain Paresthesia on Injection Noted: No Resistance on Injection: Normal Image Stored and Saved: Yes Events: Uneventful and Well Tolerated (20 mL of block solution injected on each side. The block solution containing 20 mL of 0.5% preservative-free bupivacaine, and 20 mL of preservative free normal saline.)
[2022-02-17] MEDS ORDERED: SUCCINYLCHOLINE CHLORIDE 100 MG/5 ML SYR IV ONE (09:21)
[2022-02-17] MEDS ORDERED: ROCURONIUM 10 MG/ML (5 ML VIAL) IV ONE (09:21)
[2022-02-17] MEDS ORDERED: SODIUM CHLORIDE 0.9% (PF) 10 ML VIAL ONE (09:21)
[2022-02-17] MEDS ORDERED: HYDROmorphone (PF) 1 MG/ML ONE (09:21)
[2022-02-17] MEDS ORDERED: fentaNYL (PF) 50 MCG/ML 2 ML AMP ONE (09:21)
[2022-02-17] MEDS ORDERED: LIDOCAINE 2% INJ 20 MG/ML (2 ML VIAL) ONE (09:21)
[2022-02-17] MEDS ORDERED: GLYCOPYRROLATE 0.2 MG/ML 2 ML VIAL ONE (09:21)
[2022-02-17] MEDS ORDERED: NEOSTIGMINE 1 MG/ML 10 ML VIAL ONE (09:21)
[2022-02-17] MEDS ORDERED: ROPIVACAINE 5 MG/ML 30 ML VIAL ONE (09:21)
[2022-02-17] MEDS ORDERED: PROPOFOL 10 MG/ML 20 ML VIAL IV ONE (09:21)
[2022-02-17] MEDS ORDERED: BUPIVACAINE (PF) 0.25% 30 ML VIAL SQ ONE ×2 (10:14→11:07)
[2022-02-17] MEDS ORDERED: diphenhydrAMINE 50 MG/ML 1 ML VIAL IVP PRN (11:03)
[2022-02-17] MEDS ORDERED: SIMETHICONE 80 MG CHEWABLE PO PRN (11:03)
[2022-02-17] MEDS ORDERED: IBUPROFEN 600 MG TAB PO PRN (11:03)
[2022-02-17] MEDS ORDERED: Acetaminophen-Codeine 300-30mg TAB PO PRN ×2 (11:03)
[2022-02-17] MEDS ORDERED: ONDANSETRON 4 MG/2 ML VIAL IVP PRN (11:03)
[2022-02-17] MEDS ORDERED: METOCLOPRAMIDE 5 MG/ML 2 ML VIAL IVP PRN (11:03)
[2022-02-17] MEDS ORDERED: LACTATED RINGERS 1,000 ML IV ONE ×2 (11:08→12:31)
--- NOTE | 2022-02-17 11:13 | P.OP ---
Date of Procedure: 02/17/22 Preoperative Diagnosis: #1 menometrorrhagia #2. Failed endometrial ablation Postoperative Diagnosis: Same Procedure(s) Performed: #1. Da Pardeep robotically assisted laparoscopic hysterectomy with bilateral salpingectomy #2. Diagnostic cystoscopy Anesthesia: NAZIA Surgeon: Elias Lebron Manager Architecture #1: Darlin Parada Estimated Blood Loss (ml): 200 IV fluids (ml): 750 Urine output (ml): 500 Pathology: other (Uterus and bilateral fallopian tubes) Condition: stable Disposition: PACU Operative Findings: Intraoperatively, the uterus, tubes, and ovaries were entirely normal to inspection. There was no evidence of pathology in the pelvis the patient was quite vascular in nature. With the cystoscope in place the dome of the bladder showed no evidence of damage both laparoscopically and cystoscopically. The bilateral ureters were seen to the peristalsing with ureteral jets noted. Description of Procedure: The patient was prepped and draped in usual fashion after general endotracheal anesthesia was administered by the anesthesiologist. A weighted speculum was placed and the the cervix grasped with a single-tooth tenaculum. Serial dilation was carried out to admit a V care the uterine manipulator with a large cup which was placed in standard fashion without difficulty. The bladder was then catheterized to avoid catheter left in place. Attention was then turned to the abdomen. Site was selected approximately 3-4 synovators above the umbilicus in the midline where an 8 mm incision was made in the transverse plane allowing an 8 mm optical da Pardeep trocar to be placed intra-abdominally without difficulty. A pneumoperitoneum was then infused. A site was selected approximately 10-12 cm lateral and 4 cm inferior in the right lower quadrant where an 8 mm incision was made in the transverse plane allowing insertion of an 8 mm da Pardeep trocar under direct visualization without difficulty. A myringotomy incision then da Pardeep trocar were placed as the left lower quadrant. The left lower quadrant trocar and optical trocar were then bisected and a 11 mm materials assistant port placed approximately 4 cm above the level of the optical trocar. The robot was then docked to the patient and a [place] bipolar cautery forceps placed in the left arm with a monopolar cautery scissors placed in the right arm. I then presented to the console. The left fallopian tube was dissected from the ovary down to the level of the uterus where the where the utero-ovarian ligament was then cauterized and cut and this was carried through the round ligament after which time the bladder peritoneum was developed midline. Uterine vasculature was skeletonized and the uterine blood vessels cauterized and cut. Attention was turned to the right side where similar operations were carried out without difficulty. Once in I felt that the uterine vasculature been cauterized, the vagina was sealed with a sponge and the vaginal cuff open anteriorly. Using both cautery and cut, the cup was followed circumferentially to release the uterus from the patient at which time it was then evacuated into the vagina. There was a moderate amount of blood flow present at the vaginal cuff which was made hemostatic with cautery and ultimately with closure. The monopolar scissors replaced with the laparoscopic suturing device and a stitch of 0 Stratafix passed and the abdomen. This was then utilized to close the vaginal cuff from margin to margin. After closure, hemostasis appeared to be quite good. Nevertheless, FloSeal was placed across the entirety of the cuff to ensure good hemostasis. I then returned to the patient and remove the Santos catheter and placed diagnostic cystoscope. The dome of the bladder was noted to be undamaged both from the cystoscopic side and laparoscopic side. The ureteral jets were seen bilaterally representing normal ureteral peristalsis. All instrumentation was then removed after undocking the robot. The trochars were removed and the incisions were closed with interrupted subcuticular stitches of 4-0 Vicryl followed by half-inch Steri-Strips placed with Mastisol. Incisions were infused with an equal amount of half percent Marcaine. Estimated blood loss for the case was approximately 200 mL. There are no complications. All sponge, instrument, needle counts were correct. The patient tolerated the procedure well and proceeded to the recovery room in stable condition.
[2022-02-17] MEDS ORDERED: HYDROmorphone 0.5 MG/0.5 ML SYRINGE IVP ONE ×2 (11:48→12:09)
[2022-02-17] MEDS: LACTATED RINGERS 1,000 ML IV SCH ×2 (13:30→22:20)
[2022-02-17] MEDS: KETOROLAC 15 MG/ML 1 ML VIAL IVP PRN ×2 (17:43→23:41)
[2022-02-17] MEDS: SENNOSIDES-DOCUSATE SODIUM 1 EACH TAB PO SCH (19:44)
[2022-02-18] MEDS: LACTATED RINGERS 1,000 ML IV SCH (06:41)
[2022-02-18 07:09] LABS: Basophils # (A) 0.1 k/uL (0-0.2); Basophils % (A) 1 %; Eosinophils % (A) 0 %; HCT 41.4 % (34.0-46.0); HGB 13.3 gm/dL (11.4-16.0); Lymphocytes # (A) 2.4 k/uL (1.0-4.8); Lymphocytes % (A) 21 %; MCH 29.1 pg (25.0-35.0); MCHC 32.1 g/dL (31.0-37.0); MCV 90.7 fL (80.0-100.0); Mean Platelet Volume 6.9; Monocytes # (A) 0.5 k/uL (0-1.0); Monocytes % (A) 5 %; Neutrophils # (A) 8.1 k/uL (1.3-7.7); Neutrophils % (A) 72 %; Platelet Count 260 k/uL (150-450); RBC 4.56 m/uL (3.80-5.40); RDW 12.4 % (11.5-15.5); WBC 11.2 k/uL (3.8-10.6)
[2022-02-18] MEDS: SENNOSIDES-DOCUSATE SODIUM 1 EACH TAB PO SCH (08:20)
[2022-02-18 08:49] VITALS: BP 138/71; PULSE 63; RESP 18; TEMP 98.1
--- NOTE | 2022-02-18 08:52 | P.DS ---
Providers Date of admission: 02/18/22 04:36 Expected date of discharge: 02/18/22 Attending physician: Elias Lebron Primary care physician: Clay Arauz - Discharge Diagnosis(es) (1) Menometrorrhagia Current Visit: Yes Status: Acute Hospital Course: The patient is a 36 year 3 para 3003 who presented the office complaining of significant menometrorrhagia after having had an ablation within the last year or 2. She presented requesting definitive therapy. Her examination more out that a da Pardeep approach was the only reasonable approach. She was therefore taken the operating room where she underwent a da Pardeep robotically assisted laparoscopic hysterectomy with bilateral salpingectomy and diagnostic cystoscopy and uncomplicated fashion. She was tolerating regular diet by the postoperative day #1 was deemed stable for discharge on postoperative day #1. She was discharged home to follow-up in the office in 2 weeks for incision checks and 8 weeks routinely. Discharge instructions included calling for any significantly increased bleeding, fever, pain, incisional complaints, or anything else that concerned her. She was additionally and most important instructed to have nothing in the vagina for at least a weeks time to include intercourse. She understood her instructions and agrees to follow up as noted above. Discharge medications included only [id number] analgesic pain medications. Discharge hemoglobin and hematocrit were 13.3 and 41.4 respectively. Procedures: #1. Da Pardeep robotically assisted laparoscopic hysterectomy with bilateral salpingectomy #2. Diagnostic cystoscopy Patient Condition at Discharge: Stable Plan - Discharge Summary Discharge Rx Participant: Yes New Discharge Prescriptions: No Action Cholecalciferol [Vitamin D3 (25 Mcg = 1000 Iu)] 1,000 unit PO DAILY LORazepam [Ativan] 0.5 mg PO DAILY PRN PRN Reason: Anxiety Multivitamins, Thera [Multivitamin (formulary)] 1 tab PO DAILY Fexofenadine HCl [Alma Delia Allergy] 60 mg PO BID Venlafaxine HCl ER [Effexor Xr] 75 mg PO DAILY Collagen Supplement 1 applicate PO DAILY Discharge Medication List Cholecalciferol [Vitamin D3 (25 Mcg = 1000 Iu)] 1,000 unit PO DAILY 07/26/15 [History] LORazepam [Ativan] 0.5 mg PO DAILY PRN 11/27/16 [History] Multivitamins, Thera [Multivitamin (formulary)] 1 tab PO DAILY 11/27/16 [History] Fexofenadine HCl [Alma Delia Allergy] 60 mg PO BID 03/20/21 [History] Collagen Supplement 1 applicate PO DAILY 03/27/21 [History] Venlafaxine HCl ER [Effexor Xr] 75 mg PO DAILY 03/27/21 [History] Follow up Appointment(s)/Referral(s): Elias Lebron MD [STAFF PHYSICIAN] - 2 Weeks Discharge Disposition: HOME SELF-CARE
[2022-02-18] MEDS ORDERED: ACETAMINOPHEN TAB 325 MG TAB PO PRN (11:04)
== END 2022-02-18 09:45 | disposition home or self-care (01) ==
LOC: OR 07:06 → 4FBP 11:13 → OR 02-18 04:36 → 4FBP 02-18 04:36
PROVIDERS: ADMIT Obstetrics & Gynecology; ATTEND Obstetrics & Gynecology
DX: N92.0 Excessive and frequent menstruation with regular cycle (principal); N92.1 Excessive and frequent menstruation with irregular cycle; F41.9 Anxiety disorder, unspecified; F41.0 Panic disorder [episodic paroxysmal anxiety]; F32.A Depression, unspecified; Z87.09 Personal history of other diseases of the respiratory system; Z98.890 Other specified postprocedural states; Z79.899 Other long term (current) drug therapy; Z88.0 Allergy status to penicillin; Z88.2 Allergy status to sulfonamides; J30.2 Other seasonal allergic rhinitis
CPT/HCPCS: 58571; S2900; 64999; 81025; 85025; 86850; 86900; 86901; 88307

== ENCOUNTER → 2022-03-31 | Outpatient (CLI) | payer BC ==
--- NOTE | 2022-03-31 20:16 | US ---
EXAMINATION TYPE: US thyroid st tissue head/neck DATE OF EXAM: 03/31/2022 COMPARISON: US 03/06/20 CLINICAL HISTORY: E04.1 Thyroid Nodule. Hx of thyroid nodule. FNA done March 2021. GLAND SIZE: Right Lobe: 5.6 x 1.7 x 1.3 cm Overall Parenchyma: homogenous Left Lobe: 5.4 x 1.8 x 1.2 cm Overall Parenchyma: homogeneous Isthmus Thickness: 0.3 cm NODULES RIGHT: # of nodules measured on right: 0 LEFT: # of nodules measured on left: 1 1. 1.2 X 1.0 x 0.7 cm, mid lateral, solid or almost completely solid, hypoechoic nodule, which is w ider than tall, with smooth margins, without echogenic foci. TR 4 Prior size: 1.0 x 0.6 x 0.7 cm ISTHMUS: # of nodules measured in the isthmus: 0 Bilateral neck scanned, no evidence of lymphadenopathy. IMPRESSION: 1. Moderately suspicious nodule left lobe thyroid. Follow-up exam in one year is recommended 2017 ACR TI-RADS LEVEL: TR-RADS 4 - Moderately Suspicious: Follow if > 1 cm, FNA if > 1.5 cm *Highest TI-RADS level nodule reported
== END | disposition home or self-care (01) ==
LOC: RADUSWWP 08:14
PROVIDERS: ATTEND Surgery
DX: E04.1 Nontoxic single thyroid nodule (principal)
CPT/HCPCS: 76536

== ENCOUNTER → 2022-09-02 | Outpatient (CLI) | payer BC ==
--- NOTE | 2022-09-03 02:14 | MR ---
EXAMINATION TYPE: MR knee RT wo con DATE OF EXAM: 09/02/2022 COMPARISON: None HISTORY: Right knee pain x 2 years. Multiplanar multiecho imaging of the right knee with no contrast. There is moderate size knee joint effusion. The anterior and posterior cruciate ligaments are intact. There is small area of horizontal increased signal in the posterior horn of the medial meniscus exte nding to the superior surface. The patella is intact. No evidence of a fracture. There is hypertrophi c spurring of the femoral and tibial condyles. The collateral ligaments are intact. No fracture seen. IMPRESSION: Moderate joint effusion. Small horizontal tear of the posterior horn medial meniscus. Mild osteoarthr itic changes. No evidence of ligamentous tear. Degenerative thinning and medial displacement of the m edial meniscus.
== END | disposition home or self-care (01) ==
LOC: RADMRIMAIN 21:00
PROVIDERS: ATTEND Orthopaedic Surgery
DX: M23.322 Other meniscus derangements, posterior horn of medial meniscus, left knee (principal); M17.11 Unilateral primary osteoarthritis, right knee; M25.561 Pain in right knee

== ENCOUNTER → 2022-09-25 | Outpatient (CLI) | payer BC ==
[2022-09-25 23:57] LABS: Basophils # (A) 0.07 X 10*3/uL (0.00-0.10); Basophils % (A) 0.8 %; Eosinophils # (A) 0.16 X 10*3/uL (0.04-0.35); Eosinophils % (A) 1.9 %; HCT 42.3 % (37.2-46.3); HGB 13.4 g/dL (12.0-15.0); Immature Grans, Automated 0.5 %; Lymphocytes # (A) 2.26 X 10*3/uL (0.90-5.00); Lymphocytes % (A) 26.2 %; MCH 29.4 pg (27.0-32.0); MCHC 31.7 g/dL (32.0-37.0); MCV 92.8 fL (80.0-97.0); Mean Platelet Volume 10.1 fL (9.5-12.2); Monocytes # (A) 0.52 X 10*3/uL (0.20-1.00); NRBC Per 100 WBC 0 /100 WBCS (0.0-0.0); Neutrophils # (A) 5.59 X 10*3/uL (1.80-7.70); Neutrophils % (A) 64.6 %; Platelet Count 257 X 10*3/uL (140-440); RBC 4.56 X 10*6/uL (4.10-5.20); RDW 12.2 % (11.5-14.5); WBC 8.64 X 10*3/uL (4.50-10.00)
[2022-09-26 00:03] LABS: Anion Gap 11.2 mmol/L (10.00-18.00); Carbon Dioxide 23.9 mmol/L (20.0-27.5); Potassium 3.7 mmol/L (3.5-5.5)
== END | disposition home or self-care (01) ==
LOC: LABPAT 13:48
PROVIDERS: ATTEND Orthopaedic Surgery
DX: Z01.812 Encounter for preprocedural laboratory examination (principal); M23.91 Unspecified internal derangement of right knee
CPT/HCPCS: 80051; 85025

== ENCOUNTER 2022-10-08 11:18 | Day surgery (SDC) | payer BC ==
[2022-10-03 12:09] VITALS: BMI 41.0
--- NOTE | 2022-10-07 11:43 | HP ---
HISTORY AND PHYSICAL DATE OF SURGERY: 10/08/2022. HISTORY OF PRESENT ILLNESS: Stephanie Vee is a 36-year-old patient seen with progressive right knee pain. We discussed options for treatment. She elected to proceed with right knee arthroscopy. Consent was obtained. PAST MEDICAL HISTORY: Noncontributory. SURGICAL HISTORY: Carpal tunnel surgery. DAILY MEDICATIONS: 1. Effexor. 2. Tylenol. ALLERGIES: Penicillin, sulfa. SOCIAL HISTORY: She denies tobacco use. PHYSICAL EVALUATION OF THE RIGHT KNEE: Range of motion is 0 to 130. Mild effusion. Tenderness along the medial joint line. Positive medial Mary's. Ligaments stable. Hip rotation without pain. Distal neurovascular exam intact. RADIOGRAPHS: Right knee radiographs revealed moderate osteoarthritic changes. MRI right knee revealed medial meniscal tear, moderate effusion. IMPRESSION: Internal derangement of right knee with medial meniscal tear. PLAN: Right knee arthroscopy with partial medial meniscectomy and debridement. MMODL / IJN: [id number] /
[~2022-10-08 11:18] MED LIST changes: +HYDROmorphone 0.5 MG/0.5 ML SYRINGE IVP PRN; -MORPHINE SULFATE 4 MG/ML SYRINGE IV PRN
[2022-10-08] MEDS ORDERED: BUPIVACAIN-EPI 0.25%-1:200,000 30 ML VIAL INTRAARTIC ONE ×2 (12:23→13:03)
[2022-10-08] MEDS ORDERED: fentaNYL (PF) 50 MCG/ML 2 ML AMP ONE (12:29)
[2022-10-08] MEDS ORDERED: LIDOCAINE 2% INJ 20 MG/ML (2 ML VIAL) ONE (12:29)
[2022-10-08] MEDS ORDERED: PROPOFOL 10 MG/ML 20 ML VIAL IV ONE (12:29)
[2022-10-08] MEDS ORDERED: SUCCINYLCHOLINE CHLORIDE 200 MG/10 ML VIAL IV ONE (12:29)
[2022-10-08] MEDS ORDERED: MIDAZOLAM 2 MG/2 ML VIAL ONE (12:29)
[2022-10-08 13:20] VITALS: TEMP 96.8
--- NOTE | 2022-10-08 13:20 | P.OP ---
Date of Procedure: 10/08/22 Preoperative Diagnosis: Internal derangement right knee Postoperative Diagnosis: 1. Tear medial meniscus right knee 2. 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 Reactive synovitis medial, lateral and suprapatellar compartments right knee Procedure(s) Performed: 1. Arthroscopic partial medial meniscectomy right knee 2. Arthroscopic microfracture medial tibial plateau right knee 3. Arthroscopic partial synovectomy medial, lateral and suprapatellar compartments right knee Anesthesia: LILYA, local Surgeon: Fracisco Gomez Estimated Blood Loss (ml): 7 Pathology: none sent Condition: stable Disposition: PACU Indications for Procedure: 36-year-old patient seen with progressive right knee pain. After having treatment options discussed, she elected to proceed with arthroscopy. Operative Findings: See description of procedure Description of Procedure: Patient was taken to the operative suite. Patient underwent a general anesthetic by the department of anesthesia. Patient was given preoperative antibiotics. The right lower extremity was placed in a well-padded arthroscopic leg mcneal. The right leg was prepped and draped in the normal sterile orthopedic fashion. A lateral parapatellar and suprapatellar incision was made. Trochars were inserted. Arthroscopy was initiated. Suprapatellar pouch revealed diffuse thick reactive synovitis. The patellofemoral joint appeared to articulate congruently. There was grade 1 chondromalacia. The scope was guided into the medial gutter. No loose bodies or plica were identified The scope was then guided into the medial compartment. A medial parapatellar incision was made. Trocar inserted followed by probe. There was a complex tear involving the posterior horn medial meniscus. There is a grade 3 chondromalacia medial femoral condyle with diffuse osteochondral flap tears. There was air grade 4 chondromalacia along the medial weightbearing surface of the medial tibial plateau with exposed bone measuring approximately 1 cm diameter. There was thick reactive synovitis anteriorly. I performed a partial medial meniscectomy getting down to stable meniscal tissue. I performed a chondroplasty of the medial femoral condyle getting down to stable osteochondral tissue. I performed a partial synovectomy decompressing the reactive synovitis anteriorly. I introduced a microfracture awl and I performed a microfracture of the medial tibial plateau penetrating the bone with resultant bleeding at the microfracture site. The residual meniscus was probed and was found to be stable. The residual osteochondral surface appears stable. I again noted grade 3 chondral malacia the medial femoral condyle. There was good decompression of the synovitis. Scope and probe were then guided into the intercondylar notch. Cruciates were identified, probed and found to be stable. The scope and probe were then guided into lateral compartment. Lateral meniscus was found to be stable. There was some early grade 1 chondromalacia lateral compartment. There was some thick reactive synovitis anteriorly. I performed a partial synovectomy. Shaver was removed. There was good decompression of the synovitis. The scope was in guided back into the suprapatellar compartment. I introduced a motorized shaver into the suprapatellar compartment. I debrided some piecemeal fragments of meniscus that I encountered. I performed a partial synovectomy. Shaver was now removed. There was good decompression of synovitis. I now took one more look around the entire knee, no residual debris. Instruments were now removed from the joint. The joint was infiltrated with .25% Marcaine. Steri-Strips were applied to the portal sites. Sterile dressings were applied. The patient was placed into a SERGEY hose. No tourniquet was utilized. The patient was awakened, transferred to a bed and taken to recovery stable satisfactory condition.
[2022-10-08 14:04] VITALS: RESP 16
[2022-10-08 15:03] VITALS: BP 112/76; PULSE 82
== END 2022-10-08 14:45 | disposition home or self-care (01) ==
LOC: OR 11:18
PROVIDERS: ATTEND Orthopaedic Surgery
DX: S83.241A Other tear of medial meniscus, current injury, right knee, initial encounter (principal); M94.261 Chondromalacia, right knee; M65.861 Other synovitis and tenosynovitis, right lower leg; M17.11 Unilateral primary osteoarthritis, right knee; M25.461 Effusion, right knee; F32.A Depression, unspecified; Z98.890 Other specified postprocedural states; Z88.2 Allergy status to sulfonamides; Z88.0 Allergy status to penicillin; Z79.84 Long term (current) use of oral hypoglycemic drugs; Z79.899 Other long term (current) drug therapy; X58.XXXA Exposure to other specified factors, initial encounter
CPT/HCPCS: 29881; 29879; J2250; J0330; J1100; J0690; J2405; J3010; J2704; J1170; J2001

== ENCOUNTER → 2023-06-03 | Outpatient (CLI) | payer BC ==
--- NOTE | 2023-06-03 20:10 | US ---
EXAMINATION TYPE: US thyroid st tissue head/neck DATE OF EXAM: 06/03/2023 COMPARISON: CLINICAL INDICATION: Female, 37 years old with history of E04.1 NONTOXIC SINGLE THYROID NODULE; Follo w up nodule GLAND SIZE: Right Lobe: 5.3 x 1.6 x 1.2 cm Overall Parenchyma: homogenous Left Lobe: 4.5 x 1.4 x 1.4 cm Overall Parenchyma: homogeneous Isthmus Thickness: 0.3 cm NODULES RIGHT: # of nodules measured on right: 0 LEFT: # of nodules measured on left: 1 1. 1.3 X 0.8 x 0.6 cm, mid lateral, solid or almost completely solid, hypoechoic nodule, which is w ider than tall, with smooth margins, without echogenic foci. Prior size: 1.2 x 1.0 x 0.7 cm ISTHMUS: # of nodules measured in the isthmus: 0 Bilateral neck scanned, no evidence of lymphadenopathy. IMPRESSION: 1. Moderately suspicious nodule left lobe thyroid. Follow-up exam in one year is recommended. 2017 ACR TI-RADS LEVEL: TR-RADS 4 - Moderately Suspicious: Follow if > 1 cm, FNA if > 1.5 cm *Highest TI-RADS level nodule reported
[2023-06-03 20:25] LABS: T4, Free (Free Thyroxine) 1.18 ng/dL (0.80-1.80)
== END | disposition home or self-care (01) ==
LOC: RADUSWWP 14:53
PROVIDERS: ATTEND Internal Medicine
DX: E04.2 Nontoxic multinodular goiter (principal); E55.9 Vitamin D deficiency, unspecified
CPT/HCPCS: 76536; 82306; 84439; 84443

== ENCOUNTER → 2023-10-22 | Outpatient (CLI) | payer BC ==
--- NOTE | 2023-10-23 07:04 | MR ---
EXAMINATION TYPE: MR brain wo/w con DATE OF EXAM: 10/22/2023 COMPARISON: NONE HISTORY: Evaluate for swollen optic nerve, blurry vision, couple episodes of vision going dark briefl y TECHNIQUE: Multiplanar, multisequence images of the brain and brainstem is performed without and with IV contras t, utilizing 10 mL intravenous Gadavist . FINDINGS: Diffusion weighted images demonstrate no evidence of a recent infarct or other diffusion ab normality. There is no extra-axial fluid collection or significant white matter signal abnormality. The ventricular system and cisternal spaces are normal in size and appearance. The brain volume is age appropriate. Midline structures demonstrate normal morphology. The craniocervical junction appears within normal limits. Post contrast images demonstrate no abnormal enhancement. The dural venous sinuses appear pa tent. The visualized sinuses are clear and the globes are intact. There is prominence of the CSF surr ounding the bilateral optic nerves. IMPRESSION: Prominence of the CSF surrounding the bilateral optic nerves is confirmed. No suspicious enhancement noted. No additional suspicious findings to suggest intracranial hypertension.
== END | disposition home or self-care (01) ==
LOC: RADMRIMAIN 14:07
PROVIDERS: ATTEND Ophthalmology
DX: H47.333 Pseudopapilledema of optic disc, bilateral (principal); H53.8 Other visual disturbances
CPT/HCPCS: 70553; A9585

== ENCOUNTER 2023-10-29 12:50 | Day surgery (SDC) | payer BC ==
[~2023-10-29 12:50] MED LIST changes: -DEXAMETHASONE SOD PHOSPHATE 4 MG/ML 1 ML VIAL IV ONE; -HYDROmorphone 0.5 MG/0.5 ML SYRINGE IVP PRN; -ONDANSETRON 4 MG/2 ML VIAL IVP ONE; -ceFAZolin 3 GM in SODIUM CHLORIDE 0.9% 100 ML IVPB PRN
[2023-10-29 13:27] VITALS: TEMP 97.9
--- NOTE | 2023-10-29 14:22 | P.PCN ---
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 Condition: stable Complication: none. Description of the procedure procedure risk and benefits discussed with the patient and family, consent signed. Patient and the procedure area placed in lateral position ( right side down ), back prepped with chlorhexidine 3 times been local infiltration of the skin and subcutaneous tissue with lidocaine 1% 3 mL for skin and subcu interstitial frustrations at L4 5 levels then 22-gauge Quincke-type needle advanced slowly at L4- 5 interlaminar space there was positive cerebrospinal fluid which was clear, no heme, no paresthesia ,total of 9 ML of clear cerebrospinal fluid collected in 4 different tubes 2-2-1/2 mL in each, then the needle removed and a Band-Aid applied and patient tolerated the procedure well without any complications. Opening pressure= 30 cm of water
[2023-10-29 14:39] VITALS: RESP 14
[2023-10-29 15:26] VITALS: BP 130/74; PULSE 78
[2023-10-29 15:56] LABS: Glucose,CSF 52 mg/dL (40-70); Total Protein,CSF 31 mg/dL (12-60)
== END 2023-10-29 15:14 | disposition home or self-care (01) ==
LOC: ORPAIN 12:50
PROVIDERS: ATTEND Specialist
DX: H47.339 Pseudopapilledema of optic disc, unspecified eye (principal); Z88.0 Allergy status to penicillin; Z88.2 Allergy status to sulfonamides; Z90.710 Acquired absence of both cervix and uterus
CPT/HCPCS: 62270; 82945; 84157

== ENCOUNTER 2023-11-16 10:28 | Emergency (ER) | payer BC ==
--- NOTE | 2023-11-16 10:58 | ED ---
General Adult HPI - General Chief complaint: Recheck/Abnormal Lab/Rx Stated complaint: High Potassium Time Seen by Provider: 11/16/23 10:31 Source: patient, RN notes reviewed Mode of arrival: ambulatory Limitations: no limitations - History of Present Illness Initial comments: 38-year-old female presents emergency department with chief complaint of abnor mal labs. Patient states that she was not feeling well states that she went to urgent care on Thursday had blood work drawn showing a potassium that was severely elevated. She does admit that she was started on Diamox by her pick up truck driver secondary to possible pseudotumor cerebri and states that she knew it was a diuretic so she started taking a supplement on her own. Patient states that she recent has been very nauseated, fatigued, states that she has a rash she has had some palpitations at times. - Related Data Home Medications Medication Instructions Recorded Confirmed Venlafaxine HCl ER [Effexor Xr] 75 mg PO DAILY 03/27/21 11/16/23 Allergy Injections 1 dose SQ WEEKLY 10/23/23 11/16/23 Cetirizine HCl [Zyrtec] 10 mg PO DAILY 11/16/23 11/16/23 Multivitamins, Thera [Multivitamin 1 tab PO DAILY 11/16/23 11/16/23 (formulary)] Omeprazole Magnesium [PriLOSEC OTC] 20 mg PO DAILY 11/16/23 11/16/23 Vitamin D3(Unknown Dose) 1 tab PO DAILY 11/16/23 11/16/23 acetaZOLAMIDE [Diamox] 250 mg PO BID 11/16/23 11/16/23 Previous Rx's Medication Instructions Recorded Triamcinolone 0.1% Cream [Kenalog 1 applicatio TOPICAL BID #30 gram 11/16/23 0.1% Cream] Allergies Allergy/AdvReac Type Severity Reaction Status Date / Time Penicillins Allergy Rash/Hives Verified 11/16/23 12:33 all over Sulfa (Sulfonamide Allergy Rash/Hives Verified 11/16/23 12:33 Antibiotics) all over Review of Systems ROS Statement: Those systems with pertinent positive or pertinent negative responses have been documented in the HPI. ROS Other: All systems not noted in ROS Statement are negative. Past Medical History Past Medical History: Skin Disorder Additional Past Medical History / Comment(s): COVID 01/2021, constipation, eczema, nodule on thyroid(getting biopsy 03/27/21), blood clots with periods, History of Any Multi-Drug Resistant Organisms: None Reported Past Surgical History: Uterine Ablation Additional Past Surgical History / Comment(s): darvin carpal tunnel, Past Anesthesia/Blood Transfusion Reactions: Motion Sickness Past Psychological History: Anxiety, Depression, Panic Disorder Smoking Status: Never smoker Past Alcohol Use History: Rare Past Drug Use History: None Reported - Past Family History Father Family Medical History: No Reported History Mother Family Medical History: No Reported History General Exam Limitations: no limitations General appearance: alert, in no apparent distress Head exam: Present: atraumatic, normocephalic, normal inspection Neck exam: Present: normal inspection. Absent: tenderness, meningismus, lymphadenopathy Respiratory exam: Present: normal lung sounds bilaterally. Absent: respiratory distress, wheezes, rales, rhonchi, stridor Cardiovascular Exam: Present: regular rate, normal rhythm, normal heart sounds. Absent: systolic murmur, diastolic murmur, rubs, gallop, clicks GI/Abdominal exam: Present: soft, normal bowel sounds. Absent: distended, tenderness, guarding, rebound, rigid Neurological exam: Present: alert Skin exam: Present: rash (Dry scaly skin noted of the upper chest, neck region) Course Vital Signs 11/16/23 11/16/23 10:30 12:36 Temperature 98.2 F 98.6 F Pulse Rate 66 72 Respiratory 20 18 Rate Blood Pressure 142/82 138/68 O2 Sat by Pulse 98 100 Oximetry EKG Findings - EKG Comments: EKG Findings:: EKG performed at 11: 03 bradycardia with short WA rate of 50 WA 118 QRS 103 QT/QTc 398/372 - EKG Results: EKG: interpreted by ERMD Medical Decision Making - Medical Decision Making Was pt. sent in by a medical professional or institution (, PA, STAFF DEVELOPER, urgent care, hospital, or longterm...) When possible be specific @ -No Did you speak to anyone other than the patient for history (EMS, parent, family, police, friend...)? What history was obtained from this source @ -No Did you review nursing and triage notes (agree or disagree)? Why? @ -I reviewed and agree with nursing and triage notes Were old charts reviewed (outside hosp., previous admission, EMS record, old EKG, old radiological studies, urgent care reports/EKG's, longterm records)? Report findings @ -No old charts were reviewed Differential Diagnosis (chest pain, altered mental status, abdominal pain women, abdominal pain men, vaginal bleeding, weakness, fever, dyspnea, syncope, headache, dizziness, GI bleed, back pain, seizure, CVA, palpatations, mental health, musculoskeletal)? @ -Hyperkalemia, palpitations, viral illness, dehydration, medication reaction EKG interpreted by me (3pts min.). @ -As above X-rays interpreted by me (1pt min.). @ -None done CT interpreted by me (1pt min.). @ -None done U/S interpreted by me (1pt. min.). @ -None done What testing was considered but not performed or refused? (CT, X-rays, U/S, labs)? Why? @ -None What meds were considered but not given or refused? Why? @ -None Did you discuss the management of the patient with other professionals (professionals i.e. , PA, STAFF DEVELOPER, lab, RT, psych nurse, long term care social worker, pet caregiver, teacher, marketing and communications officer, case fitter)? Give summary @ -No Was smoking cessation discussed for >3mins.? @ -No Was critical care preformed (if so, how long)? @ -No Were there social determinants of health that impacted care today? How? (Homelessness, low income, unemployed, alcoholism, drug addiction, transportation, low edu. Level, literacy, decrease access to med. care, residential, rehab)? @ -No Was there de-escalation of care discussed even if they declined (Discuss DNR or withdrawal of care, Hospice)? DNR status @ -No What co-morbidities impacted this encounter? (DM, HTN, Smoking, COPD, CAD, Cancer, CVA, ARF, Chemo, Hep., AIDS, mental health diagnosis, sleep apnea, m orbid obesity)? @ -None Was patient admitted / discharged? Hospital course, mention meds given and r oute, prescriptions, significant lab abnormalities, going to OR and other pertinent info. @ -Discharge patient found to be mildly acidotic she was given fluid bolus and feels improved. Potassium was in within normal limits. Patient does have a rash on her chest more consistent with an eczema type rash or contact dermatitis will be start treated with a steroid cream she has an appointment with her primary care doctor tomorrow. Undiagnosed new problem with uncertain prognosis? @ -No Drug Therapy requiring intensive monitoring for toxicity (Heparin, Nitro, Insulin, Cardizem)? @ -No Were any procedures done? @ -No Diagnosis/symptom? @ -[Dermatitis, viral illness, medication reaction Acute, or Chronic, or Acute on Chronic? @ -Acute Uncomplicated (without systemic symptoms) or Complicated (systemic symptoms)? @ -[Uncomplicated Side effects of treatment? @ -[No Exacerbation, Progression, or Severe Exacerbation? @ -No Poses a threat to life or bodily function? How? (Chest pain, [place], [place], pneumonia, PE, COPD, DKA, ARF, appy, cholecystitis, CVA, Diverticulitis, Homicidal, Suicidal, threat to staff... and all critical care pts) @ -No - Lab Data Result diagrams: 11/16/23 10:52 11/16/23 10:52 Lab Results 11/16/23 11/16/23 11/16/23 Range/Units 10:52 10:52 10:52 WBC 5.7 (3.8-10.6) k/uL RBC 4.77 (3.80-5.40) m/uL Hgb 14.3 (11.4-16.0) gm/dL Hct 42.4 (34.0-46.0) % MCV 88.9 (80.0-100.0) fL MCH 29.9 (25.0-35.0) pg MCHC 33.6 (31.0-37.0) g/dL RDW 12.8 (11.5-15.5) % Plt Count 218 (150-450) k/uL MPV 7.5 Neutrophils % 61 % Lymphocytes % 29 % Monocytes % 4 % Eosinophils % 3 % Basophils % 1 % Neutrophils # 3.4 (1.3-7.7) k/uL Lymphocytes # 1.6 (1.0-4.8) k/uL Monocytes # 0.3 (0-1.0) k/uL Eosinophils # 0.2 (0-0.7) k/uL Basophils # 0.0 (0-0.2) k/uL Sodium 140 (137-145) mmol/L Potassium 4.0 (3.5-5.1) mmol/L Chloride 114 H (98-107) mmol/L Carbon Dioxide 16 L (22-30) mmol/L Anion Gap 10 mmol/L BUN 17 (7-17) mg/dL Creatinine 0.79 (0.52-1.04) mg/dL Est GFR (CKD-EPI)AfAm >90 (>60 ml/min/1.73 sqM) Est GFR (CKD-EPI)NonAf >90 (>60 ml/min/1.73 sqM) Glucose 88 (74-99) mg/dL Calcium 9.5 (8.4-10.2) mg/dL Magnesium 2.2 (1.6-2.3) mg/dL Total Bilirubin 0.4 (0.2-1.3) mg/dL AST 21 (14-36) U/L ALT 19 (4-34) U/L Alkaline Phosphatase 71 (38-126) U/L Total Protein 6.9 (6.3-8.2) g/dL Albumin 4.3 (3.5-5.0) g/dL Heterophile Antibody Negative (Negative) Disposition Clinical Impression: Contact dermatitis, Abnormal laboratory test Disposition: HOME SELF-CARE Condition: Stable Additional Instructions: Please return to the Emergency Department if symptoms worsen or any other concerns. Prescriptions: Triamcinolone 0.1% Cream [Kenalog 0.1% Cream] 1 applicatio TOPICAL BID #30 gram Is patient prescribed a controlled substance at d/c from ED?: No Referrals: Clay Arauz DO [Primary Care Provider] - 1-2 days Time of Disposition: 12:15
[2023-11-16 11:08] LABS: Basophils % (A) 1 %; Eosinophils # (A) 0.2 k/uL (0-0.7); Eosinophils % (A) 3 %; HCT 42.4 % (34.0-46.0); HGB 14.3 gm/dL (11.4-16.0); Lymphocytes # (A) 1.6 k/uL (1.0-4.8); Lymphocytes % (A) 29 %; MCH 29.9 pg (25.0-35.0); MCHC 33.6 g/dL (31.0-37.0); MCV 88.9 fL (80.0-100.0); Mean Platelet Volume 7.5; Monocytes # (A) 0.3 k/uL (0-1.0); Monocytes % (A) 4 %; Neutrophils # (A) 3.4 k/uL (1.3-7.7); Neutrophils % (A) 61 %; Platelet Count 218 k/uL (150-450); RBC 4.77 m/uL (3.80-5.40); RDW 12.8 % (11.5-15.5); WBC 5.7 k/uL (3.8-10.6)
[2023-11-16 11:27] LABS: ALT 19 U/L (4-34); AST 21 U/L (14-36); African American GFR (CKD) >90 (>60 ml/min/1.73 sqM); Albumin 4.3 g/dL (3.5-5.0); Alkaline Phosphatase 71 U/L (38-126); Anion Gap 10 mmol/L; Blood Urea Nitrogen 17 mg/dL (7-17); Calcium 9.5 mg/dL (8.4-10.2); Carbon Dioxide 16 mmol/L (22-30); Chloride 114 mmol/L (98-107); Glucose 88 mg/dL (74-99); Magnesium 2.2 mg/dL (1.6-2.3); Non-African American GFR(CKD) >90 (>60 ml/min/1.73 sqM); Sodium 140 mmol/L (137-145); Total Bilirubin 0.4 mg/dL (0.2-1.3); Total Protein 6.9 g/dL (6.3-8.2)
[2023-11-16] MEDS: SODIUM CHLORIDE 0.9% 500 ML 500 ML IV ONE ×2 (11:36→12:02)
[2023-11-16 12:43] VITALS: BP 138/68; PULSE 72; RESP 18; TEMP 98.6
== END 2023-11-16 12:36 | disposition home or self-care (01) ==
LOC: EC 10:28
DX: R79.9 Abnormal finding of blood chemistry, unspecified (principal); L25.9 Unspecified contact dermatitis, unspecified cause; B34.9 Viral infection, unspecified; R00.1 Bradycardia, unspecified; T50.2X5A Adverse effect of carbonic-anhydrase inhibitors, benzothiadiazides and other diuretics, initial encounter; F32.A Depression, unspecified; F41.9 Anxiety disorder, unspecified; Z79.899 Other long term (current) drug therapy; Z88.0 Allergy status to penicillin; Z88.2 Allergy status to sulfonamides; Z86.16 Personal history of COVID-19
CPT/HCPCS: 36415; 80053; 83735; 85025; 86308; 93005; 96360; 99285